=== PATIENT | female | born 1990 | race Caucasian/White ===

== ENCOUNTER 2022-01-08 12:41 | Inpatient (IN) | payer BC ==
[2022-01-08] MEDS ORDERED: Terbutaline 1 MG/ML SDV SUBCUT PRN (14:30)
[2022-01-08] MEDS ORDERED: Oxytocin/0.9 % Sodium Chloride 30 UNIT/500 ML BAG IV SCH ×2 (14:30→15:45)
[2022-01-08] MEDS ORDERED: Misoprostol 200 MCG Tab PO PRN (15:31)
[2022-01-08] MEDS ORDERED: Tranexamic Acid 1,000 MG in Sodium Chloride 0.9% 100 ML IV PRN (15:31)
[2022-01-08] MEDS ORDERED: Carboprost Tromethamine 250 MCG/1 ML Amp IM PRN (15:31)
[2022-01-08] MEDS ORDERED: Water For Irrigation,Sterile 1,000 ML Container IRR PRN (15:31)
[2022-01-08] MEDS ORDERED: Sodium Chloride 0.9% 20 ML SDV IV PRN (15:31)
[2022-01-08] MEDS ORDERED: Methylergonovine 0.2 MG/1 ML Amp IM PRN (15:31)
[2022-01-08] MEDS ORDERED: Sodium Chloride 0.9% 10 ML Syringe FLUSH PRN (15:31)
[2022-01-08] MEDS ORDERED: Lidocaine 1% 50 ML MDV INJECT PRN (15:31)
[2022-01-08] MEDS ORDERED: Butorphanol 1 MG/ML SDV IVPUSH PRN (15:31)
[2022-01-08] MEDS ORDERED: Sodium Chloride 0.9% 2.5 ML Syringe FLUSH PRN (15:31)
[2022-01-08] MEDS: Lactated Ringers 1,000 ML IV SCH ×2 (15:40→22:38)
[2022-01-09] MEDS: Lactated Ringers 1,000 ML IV SCH (03:18)
[2022-01-09] MEDS ORDERED: fentaNYL 100 MCG/2 ML SDV ONE (03:31)
[2022-01-09] MEDS ORDERED: Ropivacaine 100 ML ONE (03:32)
[2022-01-09] MEDS ORDERED: oxyCODONE 5 MG Tab PO PRN (04:50)
[2022-01-09] MEDS ORDERED: Witch Hazel Medicated Pads 40/Jar TOP PRN (04:50)
[2022-01-09] MEDS ORDERED: Bisacodyl 10 MG Supp RECTAL PRN (04:50)
[2022-01-09] MEDS ORDERED: Benzocaine/Menthol 20%-0.5% Spray 78 GM Cannister TOP PRN (04:50)
[2022-01-09] MEDS ORDERED: Ibuprofen 400 MG Tab PO PRN (04:50)
[2022-01-09] MEDS ORDERED: Acetaminophen 500 MG Tab PO PRN ×2 (04:50)
[2022-01-09] MEDS ORDERED: Lanolin 100% Cream 7 GM Tube TOP PRN (04:50)
[2022-01-09] MEDS: Ibuprofen 800 MG Tab PO PRN ×3 (05:30→18:50)
[2022-01-09] MEDS: Docusate Sodium 100 MG Cap PO PRN (09:02)
[2022-01-10] MEDS: Ibuprofen 800 MG Tab PO PRN (07:12)
[2022-01-10] MEDS: Docusate Sodium 100 MG Cap PO PRN (07:12)
== END 2022-01-10 15:10 | disposition home or self-care (01) | DRG 560 ==
LOC: MW.OBCHECK 12:41 → MW.OB 12:42 → MW.OBCHECK 15:31 → OBSVTOIN 01-09 04:17 → MW.OB 01-09 09:32
PROVIDERS: ADMIT Obstetrics & Gynecology; ATTEND Obstetrics & Gynecology
PROC: 10E0XZZ Delivery of Products of Conception, External Approach (ICD-10-PCS; principal; 2022-01-09)
PROC: 0KQM0ZZ Repair Perineum Muscle, Open Approach (ICD-10-PCS; 2022-01-09)
DX: O48.0 Post-term pregnancy (principal); O09.813 Supervision of pregnancy resulting from assisted reproductive technology, third trimester; Z3A.40 40 weeks gestation of pregnancy; Z37.0 Single live birth; Z86.16 Personal history of COVID-19
CPT/HCPCS: 36415; 59025; 59409; 82803; 85014; 85018; 85027; 86592; 86850; 86900; 86901; A9270-GY; J0595; J2001; J2590; J7120

== ENCOUNTER 2024-07-09 00:10 | Inpatient (IN) | payer BC ==
[2024-07-09] MEDS ORDERED: Butorphanol 2 MG/ML SDV IVPUSH PRN (00:24)
[2024-07-09] MEDS ORDERED: Misoprostol 25 MCG (1/4 of 100 MCG) Tab VAG PRN (00:24)
[2024-07-09] MEDS ORDERED: Ondansetron 4 MG/2 ML SDV IVPUSH PRN (00:24)
[2024-07-09] MEDS ORDERED: Misoprostol 200 MCG Tab PO PRN (00:24)
[2024-07-09] MEDS ORDERED: Methylergonovine 0.2 MG/1 ML Amp IM PRN (00:24)
[2024-07-09] MEDS ORDERED: Lidocaine 1% 50 ML MDV INJECT PRN (00:24)
[2024-07-09] MEDS ORDERED: Water For Irrigation,Sterile 1,000 ML Container IRR PRN (00:24)
[2024-07-09] MEDS ORDERED: Tranexamic Acid IN NACL,ISO-OS 1,000 MG in Premix Bag 1 BAG IV PRN (00:24)
[2024-07-09] MEDS ORDERED: Terbutaline 1 MG/ML SDV SUBCUT PRN (00:24)
[2024-07-09] MEDS ORDERED: Sodium Chloride 0.9% 20 ML SDV IV PRN (00:24)
[2024-07-09] MEDS ORDERED: Carboprost Tromethamine 250 MCG/1 mL Vial IM PRN (00:24)
[2024-07-09] MEDS ORDERED: Sodium Chloride 0.9% 10 ML Syringe FLUSH PRN (00:24)
[2024-07-09] MEDS ORDERED: Sodium Chloride 0.9% 2.5 ML Syringe FLUSH PRN (00:24)
[2024-07-09] MEDS ORDERED: Lactated Ringers 1,000 ML IV SCH (00:30)
[2024-07-09] MEDS ORDERED: Oxytocin/0.9 % Sodium Chloride 30 UNIT/500 ML BAG IV SCH (00:30)
[2024-07-09 01:49] LABS: HEMATOCRIT 37.3 % (37.0-47.0); HEMOGLOBIN 12.5 g/dL (12.0-16.0); MEAN CORPUSCULAR HEMOGLOBIN 26.5 pg (28.0-32.0); MEAN CORPUSCULAR HGB CONC 33.5 g/dL (32.0-36.0); MEAN PLATELET VOLUME 10.5 fL (9.4-12.3); PLATELET COUNT,PLT 168 K/uL (150-400); RED BLOOD CELL COUNT 4.72 M/uL (4.10-5.30); WHITE BLOOD CELL COUNT,WBC 13.37 K/uL (3.9-11.3)
[2024-07-09] MEDS: Misoprostol 25 MCG (1/4 of 100 MCG) Tab VAG PRN (02:05)
[2024-07-09] MEDS ORDERED: Ropivacaine HCl/PF 200 ML ONE (07:03)
[2024-07-09] MEDS ORDERED: dexmedeTOMIDine HCl 200 MCG/2 ML SDV ONE (07:03)
[2024-07-09] MEDS ORDERED: Phenylephrine HCl In 0.9% NaCl 1 MG/10 ML Syringe ONE (07:04)
[2024-07-09] MEDS ORDERED: ePHEDrine 50 MG/ML SDV IVPUSH PRN (08:23)
[2024-07-09] MEDS ORDERED: Phenylephrine HCl In 0.9% NaCl 1 MG/10 ML Syringe IVPUSH PRN (08:23)
[2024-07-09] MEDS ORDERED: Ropivacaine HCl/PF 400 MG in Premix Bag 1 BAG EPIDUR SCH (08:30)
[2024-07-09] MEDS ORDERED: dexmedeTOMIDine HCl 200 MCG/2 ML SDV EPIDUR SCH (08:30)
[2024-07-09] MEDS: Oxytocin/0.9 % Sodium Chloride 30 UNIT/500 ML BAG IV SCH (08:45)
[2024-07-09] MEDS: hydrOXYzine Pamoate 25 MG Cap PO ONE (09:15)
[2024-07-09] MEDS ORDERED: oxyCODONE 5 MG Tab PO PRN (12:32)
[2024-07-09] MEDS ORDERED: Lanolin 100% Cream 7 GM Tube TOP PRN (12:32)
[2024-07-09] MEDS: Benzocaine/Menthol 20%-0.5% Spray 78 GM Cannister TOP PRN (15:51)
[2024-07-09] MEDS: Witch Hazel Medicated Pads 40/Jar TOP PRN (15:52)
[2024-07-09] MEDS: Ibuprofen 800 MG Tab PO PRN (17:48)
[2024-07-09] MEDS: Acetaminophen 500 MG Tab PO PRN (21:32)
[2024-07-10 05:54] LABS: HEMATOCRIT 36.8 % (37.0-47.0); HEMOGLOBIN 11.9 g/dL (12.0-16.0)
[2024-07-10] MEDS: Docusate Sodium 100 MG Cap PO PRN (08:32)
== END 2024-07-10 17:05 | disposition home or self-care (01) | DRG 560 ==
LOC: MW.OB 00:10 → OBSVTOIN 12:33 → MW.OB 22:15
PROVIDERS: ADMIT Obstetrics & Gynecology; ATTEND Obstetrics & Gynecology
PROC: 10E0XZZ Delivery of Products of Conception, External Approach (ICD-10-PCS; principal; 2024-07-09)
PROC: 3E0R3BZ Introduction of Anesthetic Agent into Spinal Canal, Percutaneous Approach (ICD-10-PCS; 2024-07-09)
PROC: 00HU33Z Insertion of Infusion Device into Spinal Canal, Percutaneous Approach (ICD-10-PCS; 2024-07-09)
PROC: 0HQ9XZZ Repair Perineum Skin, External Approach (ICD-10-PCS; 2024-07-09)
DX: O70.0 First degree perineal laceration during delivery (principal); Z3A.39 39 weeks gestation of pregnancy; Z37.0 Single live birth
CPT/HCPCS: 01967; 36415; 51702; 85014; 85018; 85027; 86592; 86850; 86900; 86901; A9270-GY; J2371; J2590; J2795; J3490